=== PATIENT | female | born 1995 | race Two or more races ===

== ENCOUNTER 2020-12-02 14:10 | Emergency (ER) | payer OTHER ==
[~2020-12-02] VITALS: Ht 162.6 cm; Wt 56.7 kg
[2020-12-02] MEDS ORDERED: PRENATAL + DHA1 EAC1 PO (14:37)
[2020-12-02] MEDS ORDERED: LABETALOL HCL100 MG PO (14:39)
== END 2020-12-02 19:54 | disposition home or self-care (01) ==
LOC: ER 14:10
DX: O20.0 Threatened abortion (principal); Z3A.01 Less than 8 weeks gestation of pregnancy

== ENCOUNTER 2021-07-16 09:23 | Emergency (ER) | payer OTHER ==
[~2021-07-16] VITALS: Ht 162.6 cm; Wt 59.4 kg
[~2021-07-16 09:23] MED LIST: LABETALOL HCL100 MG PO; PRENATAL + DHA1 EAC1 PO
== END 2021-07-16 14:26 | disposition home or self-care (01) ==
LOC: ER 09:23
DX: O16.5 Unspecified maternal hypertension, complicating the puerperium (principal); Z20.822 Contact with and (suspected) exposure to COVID-19